=== PATIENT | female | born 1960 | race Caucasian/White ===

== ENCOUNTER → 2016-09-18 | Outpatient (CLI) | payer MEDICARE ==
[2016-09-18 08:50] LABS: Blood Urea Nitrogen 19 mg/dL (7-17); Non-African American GFR(MDRD) >60 (>60 ml/min/1.73 sqM)
== END | disposition home or self-care (01) ==
LOC: LABWHC1 08:25
PROVIDERS: ATTEND Psychiatry & Neurology Neurology
DX: Z01.812 Encounter for preprocedural laboratory examination (principal)
CPT/HCPCS: 36415; 82565; 84520

== ENCOUNTER → 2017-02-03 | Outpatient (CLI) | payer MEDICARE ==
[2017-02-03 12:29] LABS: EKG EKG PERFORMED
[2017-02-03 13:06] LABS: Basophils % (A) 1 %; CH 29.8; CHCM 33.2; Eosinophils # (A) 0.2 k/uL (0-0.7); Eosinophils % (A) 2 %; HCT 40.5 % (34.0-46.0); HDW 2.43; HGB 14.1 gm/dL (11.4-16.0); Luc # (Auto) 0.12; Luc % (Auto) 2; Lymphocytes # (A) 2.5 k/uL (1.0-4.8); Lymphocytes % (A) 32 %; MCH 31.3 pg (25.0-35.0); MCHC 34.8 g/dL (31.0-37.0); Mean Platelet Volume 7.1; Monocytes # (A) 0.4 k/uL (0-1.0); Monocytes % (A) 5 %; Neutrophils # (A) 4.5 k/uL (1.3-7.7); Neutrophils % (A) 59 %; RDW 12.5 % (11.5-15.5); WBC 7.7 k/uL (3.8-10.6); WBC (Perox) 7.53
[2017-02-03 13:10] LABS: Partial Thromboplastin Time 28.1 sec (22.0-30.0)
[2017-02-03 13:15] LABS: Anion Gap 8 mmol/L; Blood Urea Nitrogen 21 mg/dL (7-17); Carbon Dioxide 29 mmol/L (22-30); Chloride 105 mmol/L (98-107); Glucose 116 mg/dL (74-99); Non-African American GFR(MDRD) >60 (>60 ml/min/1.73 sqM); Potassium 4.5 mmol/L (3.5-5.1); Sodium 142 mmol/L (137-145)
[2017-02-03 13:47] LABS: Appearance,Urine Clear (Clear); Bilirubin,Urine Negative (Negative); Glucose,Urine (UA) Negative (Negative); Ketones,Urine Negative (Negative); Leukocyte Esterase,Urine Small (Negative); Mucus,Urine Rare /hpf; Nitrite,Urine Negative (Negative); PH, Urine 5.5 (5.0-8.0); Particle Count 1669; Protein,Urine Negative (Negative); RBC,Urine 3 /hpf (0-5); Specific Gravity,Urine 1.018 (1.001-1.035); Squamous Epithelial Cell,Urine 1 /hpf (0-4); UA Billing (MACRO vs. MICRO) MICRO; Urobilinogen,Urine <2.0 mg/dL (<2.0); WBC,Urine 2 /hpf (0-5)
--- NOTE | 2017-02-03 14:52 | XR ---
EXAMINATION TYPE: XR chest 2V DATE OF EXAM: 02/03/2017 COMPARISON: NONE INDICATION: Precardiac surgery evaluation TECHNIQUE: Frontal and lateral views of the chest are obtained. FINDINGS: The heart size is normal. The pulmonary vasculature is normal. The lungs are clear. IMPRESSION: 1. No acute pulmonary process.
== END | disposition home or self-care (01) ==
LOC: LABWHC1 12:11
PROVIDERS: ATTEND Neurological Surgery
DX: M50.10 Cervical disc disorder with radiculopathy, unspecified cervical region (principal); Z01.810 Encounter for preprocedural cardiovascular examination; Z01.811 Encounter for preprocedural respiratory examination; Z01.82 Encounter for allergy testing; Z01.83 Encounter for blood typing
CPT/HCPCS: 36415; 71020; 80051; 81001; 82565; 82947; 84520; 85025; 85610; 85730; 87070; 93005

== ENCOUNTER → 2018-02-17 | Outpatient (CLI) | payer MEDICARE ==
--- NOTE | 2018-02-17 22:51 | MR ---
EXAMINATION TYPE: MR shoulder LT wo con DATE OF EXAM: 02/17/2018 COMPARISON: NONE HISTORY: Pain in left shoulder, Cervicalgia TECHNIQUE: Multiplanar, multisequence imaging of the left shoulder is performed without contrast. FINDINGS: Rotator Cuff: Supraspinatus and infraspinatus tendons are intact to the humeral head attachment. Subs capularis tendon is felt intact. Rotator cuff muscle bulk is preserved. Acromioclavicular Joint: There is mild to moderate joint space loss and superior capsular hypertrophy . No significant spurring is present. Distal acromion morphology is unremarkable. Underlying fat plan e is maintained. Glenohumeral Joint: There is small size glenohumeral joint effusion. Mild narrowing and joint space l oss is present. Labrum: The labrum appears grossly intact given limitation of non-arthrogram study. Biceps Tendon: The long head of biceps is in normal location within bicipital groove. Some fluid sign al surrounds tendon. Bone marrow signal: Mild focal subchondral cystic change superior lateral humeral head axial image 16 . Other: No additional significant abnormality is appreciated. IMPRESSION: No rotator cuff or labral tear identified. Mild to moderate degenerative changes as detai led above.
--- NOTE | 2018-02-18 13:35 | MR ---
MRI CERVICAL SPINE: CLINICAL HISTORY: Cervicalgia with prior surgery. History of syrinx per patient. Pain since 2007 caus ing pain or weakness into left arm per patient. TECHNIQUE: Multiplanar, multisequence imaging of the cervical spine is performed without and with IV contrast, 9 cc of gadolinium was given intravenously. COMPARISON: MRI cervical spine June 06, 2010. CT cervical spine April 06, 2014 FINDINGS: Sagittal images of the cervical spine show the craniocervical junction to remain within nor mal limits. The cervical and upper thoracic spinal cord shows increased central signal probable resi dual small syrinx beginning at superior C4 level extending to roughly inferior C5 level on sagittal i mages. This is significantly improved from prior MRI. Vertebral alignment is stable and straightened. There is artifact from anterior fusion hardware C4-C6 levels redemonstrated. The vertebral body and intravertebral disk heights are normal above and below surgical levels. The bone marrow signal inten sity is within normal limits. No suspicious enhancement is present. There is persistent effacement of the anterior thecal sac C4-C5 level on sagittal images. Axial images show the C2-C3 and C3-C4 levels to remain within normal limits. Axial images at C4-C5 level show new marked blooming artifact making evaluation suboptimal, cannot ex clude persistent anterior effacement or narrowing. Correlate clinically if there is been interval stephanie jay since 2014 CT where there was large disc herniation. CT myelogram can further evaluate this leve l if desired. Images at C5-C6 level and C6-C7 level show artifact from surgical hardware, bilateral neural foramina are patent. Spinal canal is preserved. Axial images at C7-T1 level are felt to remain within normal limits. IMPRESSION: Postsurgical changes C4-C6 level redemonstrated with marked improvement but residual syri nx noted. Artifact at surgical levels most prominent at C4-C5 level is noted. Correlate for interval surgery since CT 2014. Cannot exclude persistent anterior spinal canal effacement at this level. Cons ider CT myelogram to further evaluate based on clinical correlation.
== END | disposition home or self-care (01) ==
LOC: RADMRIMAIN 07:50
PROVIDERS: ATTEND Psychiatry & Neurology Neurology
DX: M24.812 Other specific joint derangements of left shoulder, not elsewhere classified (principal); M19.012 Primary osteoarthritis, left shoulder; G95.0 Syringomyelia and syringobulbia; Z98.1 Arthrodesis status
CPT/HCPCS: 82565; 84520; 72156; 73221; 36415; A9581

== ENCOUNTER 2019-07-02 16:07 | Emergency (ER) | payer MEDICARE, OTHER ==
[2019-07-02 16:58] VITALS: RESP 20
--- NOTE | 2019-07-02 17:14 | XR ---
EXAMINATION TYPE: XR chest 2V DATE OF EXAM: 07/02/2019 COMPARISON: 02/03/2017 HISTORY: Pain TECHNIQUE: Frontal and lateral views of the chest are obtained. FINDINGS: Heart and mediastinum are normal. Lungs are clear. Diaphragm is normal. There is slight th oracic dextroscoliosis. There is cervical spine fusion surgery. IMPRESSION: No active cardiopulmonary disease. No change.
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
[2019-07-02] MEDS ORDERED: INSULIN REGULAR 100 UNIT/ML VIAL IV STA (17:31)
[2019-07-02 18:06] VITALS: BP 182/91; PULSE 86; TEMP 98.1
== END 2019-07-02 17:59 | disposition home or self-care (01) ==
LOC: EC 16:07
DX: S29.9XXA Unspecified injury of thorax, initial encounter (principal); V43.52XA Car driver injured in collision with other type car in traffic accident, initial encounter; Y93.89 Activity, other specified; Y92.410 Unspecified street and highway as the place of occurrence of the external cause
CPT/HCPCS: 70450; 71046; 72125; 99284